=== PATIENT | male | born 1970 | race Hispanic/Latino ===

== ENCOUNTER 2017-04-22 02:56 | Inpatient (IN) | payer BC, OTHER ==
[2017-04-22 03:38] LABS: Hematocrit 48.8 % (35.5-45.6); Hemoglobin 16.9 gm/dl (11.8-15.2); Mean Corpuscular HGB Conc 35 % (32-34); Mean Corpuscular Hemoglobin 31 pg (28-32); Mean Corpuscular Volume 89 fl (84-94); Platelet Count 322 K/mm3 (140-440); Red Blood Count 5.51 M/mm3 (3.65-5.03); Red Cell Distribution Width 12.7 % (13.2-15.2)
[2017-04-22 03:51] LABS: Alanine Aminotransferase 89 units/L (7-56); BUN/Creatinine Ratio 31; Blood Urea Nitrogen 22 mg/dL (9-20); Calcium 8.6 mg/dL (8.4-10.2); Hemolysis Index 9
[2017-04-22 04:41] LABS: Anisocytosis 1+; Band Neutrophils # (Manual) 1.3 K/mm3; Basophils % (Manual) 0 % (0.0-1.8); Eosinophils % (Manual) 0 % (0.0-4.3); Total Cells Counted 100
[2017-04-22 06:56] LABS: Bilirubin,Urine NEG (Negative); Blood,Urine NEG (Negative); Color,Urine Yellow (Yellow); Hyaline Casts,Urine 4 /LPF; Mucus,Urine 3+ /HPF; Protein,Urine <15 mg/dL mg/dL (Negative); Urobilinogen,Urine < 2.0 mg/dL (<2.0)
[2017-04-22] MEDS ORDERED: NACL 0.9% 1000 ML 1,000 ML IV ONE ×2 (07:33→09:52)
--- NOTE | 2017-04-22 07:33 | Emergency Department Report ---
ED General Adult HPI - General Chief complaint: Weakness Stated complaint: WEAKNESS Time Seen by Provider: 04/22/17 07:31 Source: patient Mode of arrival: Ambulatory Limitations: No Limitations - History of Present Illness Initial comments: The patient arrives in the emergency department quite lethargic and unable to give much information. He has answers appropriately in single sentences but is really quite lethargic. He does not complain of pain anywhere. 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 He arrives with coworkers. They state that he is normally fully alert, functional and able to speak in full sentences. They found him to be very weak and lethargic this morning. He has apparently been having cold symptoms for a week. Last night had some nausea and vomiting. He denied diarrhea to me or abdominal pain. He said no recent travel. He wasn't aware of any fever or chills. However, he is a very poor historian at the time of my encounter. The patient was able to deny a previous hospitalizations or chronic medical problems. He doesn't take any medications. -: days(s) - Related Data Home Medications Medication Instructions Recorded Confirmed Last Taken No Known Home Medications [No 04/22/17 04/22/17 Unknown Reported Home Medications] Allergies Allergy/AdvReac Type Severity Reaction Status Date / Time No Known Allergies Allergy Verified 04/22/17 08:53 ED Review of Systems ROS: Stated complaint: WEAKNESS Other details as noted in HPI Comment: Unobtainable due to pts medical conditions ED Past Medical Hx - Past Medical History Previous Medical History?: No - Surgical History Past Surgical History?: No - Social History Smoking Status: Current Every Day Smoker Substance Use Type: None - Medications Home Medications: Home Medications Medication Instructions Recorded Confirmed Last Taken Type No Known Home Medications [No 04/22/17 04/22/17 Unknown History Reported Home Medications] ED Physical Exam - General Limitations: Altered Mental Status General appearance: in no apparent distress, lethargic - Head Head exam: Present: atraumatic, normocephalic - Eye Eye exam: Present: normal appearance, PERRL, EOMI. Absent: scleral icterus - ENT ENT exam: Present: normal exam, mucous membranes dry - Neck Neck exam: Present: normal inspection, full ROM. Absent: tenderness, meningismus, lymphadenopathy, thyromegaly - Respiratory Respiratory exam: Present: normal lung sounds bilaterally. Absent: respiratory distress - Cardiovascular Cardiovascular Exam: Present: regular rate, normal rhythm. Absent: systolic murmur, diastolic murmur, rubs, gallop - GI/Abdominal GI/Abdominal exam: Present: soft, normal bowel sounds. Absent: distended, tenderness, guarding, rebound, rigid - Rectal Rectal exam: Present: deferred - Extremities Exam Extremities exam: Present: normal inspection - Back Exam Back exam: Present: normal inspection. Absent: CVA tenderness (R), CVA tenderness (L) - Neurological Exam Neurological exam: Present: alert, oriented X3, CN II-XII intact. Absent: motor sensory deficit - Psychiatric Psychiatric exam: Present: normal mood, flat affect - Skin Skin exam: Present: warm, dry, intact, normal color. Absent: rash ED Course Vital Signs 04/22/17 04/22/17 04/22/17 03:18 07:24 07:31 Temperature 99.4 F Pulse Rate 52 L 55 L Respiratory 20 18 20 Rate Blood Pressure 116/74 O2 Sat by Pulse 95 96 96 Oximetry 04/22/17 04/22/17 04/22/17 07:45 08:00 08:16 Temperature Pulse Rate 61 59 L Respiratory 17 29 H Rate Blood Pressure 141/84 142/92 90/70 O2 Sat by Pulse 96 96 Oximetry 04/22/17 04/22/17 04/22/17 08:30 09:11 09:15 Temperature Pulse Rate 74 Respiratory 17 14 20 Rate Blood Pressure 182/115 182/115 134/86 O2 Sat by Pulse 96 95 93 Oximetry 04/22/17 04/22/17 04/22/17 09:31 09:45 10:00 Temperature Pulse Rate 80 72 77 Respiratory 19 18 25 H Rate Blood Pressure 182/115 128/79 131/86 O2 Sat by Pulse 93 91 93 Oximetry 04/22/17 04/22/17 04/22/17 10:10 10:15 10:31 Temperature Pulse Rate 63 67 Respiratory 12 25 H Rate Blood Pressure 131/86 131/86 O2 Sat by Pulse 94 94 95 Oximetry 04/22/17 04/22/17 04/22/17 10:45 10:51 11:01 Temperature Pulse Rate 80 78 61 Respiratory 20 18 12 Rate Blood Pressure 131/86 131/86 131/86 O2 Sat by Pulse 97 97 96 Oximetry 04/22/17 11:10 Temperature Pulse Rate 77 Respiratory 19 Rate Blood Pressure 131/86 O2 Sat by Pulse 95 Oximetry - Reevaluation(s) Reevaluation #1: Patient was given IV fluids. He was given empiric antibiotics. A CT of his head was negative. An arterial blood gas did show hypoxia with a PaO2 of less than 60. A lumbar puncture was performed without difficulty. Fluid was sent to the lab for various studies. The patient was admitted to the hospitalist service hemodynamically stable for further care and evaluation. His lactic acid level was elevated so he is presumed to have sepsis. Hospitalist was aware of the preliminary findings. The patient was admitted by Dr. Ashraf to [facility]/remote telemetry. I placed the patient 2 L of oxygen and ordered continuous pulse oximetry as well. 04/22/17 15:47 04/22/17 15:52 Lumbar puncture: spinal fluid is essentially normal. - Lumbar Puncture Consent Obtained: verbal consent, emergent situation Time Out Performed: No Indication for Procedure: change in mental status Patient Position: Sitting Upright/Leaning F Skin Prep: Povidone-Iodine 1% Spinal Needle Gauge: 20G Spinal Needle Length: 2in Interspace Used: L4-L5 Opening Pressure (cmH20): 0 (apparently normal) Fluid Initially Obtained: clear Complications: none Patient Tolerated Procedure: well ED Medical Decision Making - Lab Data Result diagrams: 04/22/17 03:25 04/22/17 03:25 Laboratory Results - last 24 hr 04/22/17 04/22/17 04/22/17 03:25 03:25 06:16 WBC 14.7 H RBC 5.51 H Hgb 16.9 H Hct 48.8 H MCV 89 MCH 31 MCHC 35 H RDW 12.7 L Plt Count 322 Add Manual Diff Complete Total Counted 100 Seg Neuts % (Manual) 71.0 H Band Neutrophils % 9.0 Lymphocytes % (Manual) 14.0 Reactive Lymphs % (Man) 0 Monocytes % (Manual) 6.0 Eosinophils % (Manual) 0 Basophils % (Manual) 0 Metamyelocytes % 0 Myelocytes % 0 Promyelocytes % 0 Blast Cells % 0 Nucleated RBC % Not Reportable Seg Neutrophils # Man 10.4 H Band Neutrophils # 1.3 Lymphocytes # (Manual) 2.1 Abs React Lymphs (Man) 0.0 Monocytes # (Manual) 0.9 H Eosinophils # (Manual) 0.0 Basophils # (Manual) 0.0 Metamyelocytes # 0.0 Myelocytes # 0.0 Promyelocytes # 0.0 Blast Cells # 0.0 WBC Morphology Not Reportable Hypersegmented Neuts Not Reportable Hyposegmented Neuts Not Reportable Hypogranular Neuts Not Reportable Smudge Cells Not Reportable Toxic Granulation Not Reportable Toxic Vacuolation Not Reportable Dohle Bodies Not Reportable Pelger-Huet Anomaly Not Reportable Tan Rods Not Reportable Platelet Estimate Appears normal Clumped Platelets Not Reportable Plt Clumps, EDTA Not Reportable Large Platelets Not Reportable Giant Platelets Not Reportable Platelet Satelliting Not Reportable Plt Morphology Comment Not Reportable RBC Morphology Not Reportable Dimorphic RBCs Not Reportable Polychromasia Not Reportable Hypochromasia Not Reportable Poikilocytosis Not Reportable Anisocytosis 1+ Microcytosis Not Reportable Macrocytosis Not Reportable Spherocytes Not Reportable Pappenheimer Bodies Not Reportable Sickle Cells Not Reportable Target Cells Not Reportable Tear Drop Cells Not Reportable Ovalocytes Not Reportable Helmet Cells Not Reportable [place] Bodies Not Reportable [place] Rings Not Reportable [place] Cells Not Reportable Bite Cells Not Reportable Crenated Cell Not Reportable Elliptocytes Not Reportable Acanthocytes (Spur) Not Reportable Rouleaux Not Reportable Hemoglobin C Crystals Not Reportable Schistocytes Not Reportable Malaria parasites Not Reportable Oswaldo Bodies Not Reportable Hem Pathologist Commnt No Sodium 136 L Potassium 4.2 Chloride 95.3 L Carbon Dioxide 25 Anion Gap 20 BUN 22 H Creatinine 0.7 L Estimated GFR > 60 BUN/Creatinine Ratio 31 Glucose 171 H Calcium 8.6 Total Bilirubin 0.90 AST 44 H ALT 89 H Alkaline Phosphatase 75 Total Protein 6.9 Albumin 4.0 Albumin/Globulin Ratio 1.4 Urine Color Yellow Urine Turbidity Clear Urine pH 5.0 Ur Specific [place] 1.024 Urine Protein <15 mg/dl Urine Glucose (UA) Neg Urine Ketones Neg Urine Blood Neg Urine Nitrite Neg Urine Bilirubin Neg Urine Urobilinogen < 2.0 Ur Leukocyte Esterase Neg Urine WBC (Auto) 5.0 Urine RBC (Auto) 1.0 Hyaline Casts 4 Urine Mucus 3+ Laboratory Results - last 24 hr 04/22/17 04/22/17 04/22/17 03:25 03:25 06:16 WBC 14.7 H RBC 5.51 H Hgb 16.9 H Hct 48.8 H MCV 89 MCH 31 MCHC 35 H RDW 12.7 L Plt Count 322 Add Manual Diff Complete Total Counted 100 Seg Neuts % (Manual) 71.0 H Band Neutrophils % 9.0 Lymphocytes % (Manual) 14.0 Reactive Lymphs % (Man) 0 Monocytes % (Manual) 6.0 Eosinophils % (Manual) 0 Basophils % (Manual) 0 Metamyelocytes % 0 Myelocytes % 0 Promyelocytes % 0 Blast Cells % 0 Nucleated RBC % Not Reportable Seg Neutrophils # Man 10.4 H Band Neutrophils # 1.3 Lymphocytes # (Manual) 2.1 Abs React Lymphs (Man) 0.0 Monocytes # (Manual) 0.9 H Eosinophils # (Manual) 0.0 Basophils # (Manual) 0.0 Metamyelocytes # 0.0 Myelocytes # 0.0 Promyelocytes # 0.0 Blast Cells # 0.0 WBC Morphology Not Reportable Hypersegmented Neuts Not Reportable Hyposegmented Neuts Not Reportable Hypogranular Neuts Not Reportable Smudge Cells Not Reportable Toxic Granulation Not Reportable Toxic Vacuolation Not Reportable Dohle Bodies Not Reportable Pelger-Huet Anomaly Not Reportable Tan Rods Not Reportable Platelet Estimate Appears normal Clumped Platelets Not Reportable Plt Clumps, EDTA Not Reportable Large Platelets Not Reportable Giant Platelets Not Reportable Platelet Satelliting Not Reportable Plt Morphology Comment Not Reportable RBC Morphology Not Reportable Dimorphic RBCs Not Reportable Polychromasia Not Reportable Hypochromasia Not Reportable Poikilocytosis Not Reportable Anisocytosis 1+ Microcytosis Not Reportable Macrocytosis Not Reportable Spherocytes Not Reportable Pappenheimer Bodies Not Reportable Sickle Cells Not Reportable Target Cells Not Reportable Tear Drop Cells Not Reportable Ovalocytes Not Reportable Helmet Cells Not Reportable [place] Bodies Not Reportable [place] Rings Not Reportable [place] Cells Not Reportable Bite Cells Not Reportable Crenated Cell Not Reportable Elliptocytes Not Reportable Acanthocytes (Spur) Not Reportable Rouleaux Not Reportable Hemoglobin C Crystals Not Reportable Schistocytes Not Reportable Malaria parasites Not Reportable Oswaldo Bodies Not Reportable Hem Pathologist Commnt No PT INR APTT Sodium 136 L Potassium 4.2 Chloride 95.3 L Carbon Dioxide 25 Anion Gap 20 BUN 22 H Creatinine 0.7 L Estimated GFR > 60 BUN/Creatinine Ratio 31 Glucose 171 H Lactic Acid Calcium 8.6 Magnesium Total Bilirubin 0.90 Direct Bilirubin Indirect Bilirubin AST 44 H ALT 89 H Alkaline Phosphatase 75 Ammonia Total Creatine Kinase CK-MB (CK-2) CK-MB (CK-2) Rel Index Troponin T NT-Pro-B Natriuret Pep Total Protein 6.9 Albumin 4.0 Albumin/Globulin Ratio 1.4 Lipase Urine Color Yellow Urine Turbidity Clear Urine pH 5.0 Ur Specific [place] 1.024 Urine Protein <15 mg/dl Urine Glucose (UA) Neg Urine Ketones Neg Urine Blood Neg Urine Nitrite Neg Urine Bilirubin Neg Urine Urobilinogen < 2.0 Ur Leukocyte Esterase Neg Urine WBC (Auto) 5.0 Urine RBC (Auto) 1.0 Hyaline Casts 4 Urine Mucus 3+ Acetaminophen 04/22/17 04/22/17 04/22/17 07:41 07:41 07:41 WBC RBC Hgb Hct MCV MCH MCHC RDW Plt Count Add Manual Diff Total Counted Seg Neuts % (Manual) Band Neutrophils % Lymphocytes % (Manual) Reactive Lymphs % (Man) Monocytes % (Manual) Eosinophils % (Manual) Basophils % (Manual) Metamyelocytes % Myelocytes % Promyelocytes % Blast Cells % Nucleated RBC % Seg Neutrophils # Man Band Neutrophils # Lymphocytes # (Manual) Abs React Lymphs (Man) Monocytes # (Manual) Eosinophils # (Manual) Basophils # (Manual) Metamyelocytes # Myelocytes # Promyelocytes # Blast Cells # WBC Morphology Hypersegmented Neuts Hyposegmented Neuts Hypogranular Neuts Smudge Cells Toxic Granulation Toxic Vacuolation Dohle Bodies Pelger-Huet Anomaly Tan Rods Platelet Estimate Clumped Platelets Plt Clumps, EDTA Large Platelets Giant Platelets Platelet Satelliting Plt Morphology Comment RBC Morphology Dimorphic RBCs Polychromasia Hypochromasia Poikilocytosis Anisocytosis Microcytosis Macrocytosis Spherocytes Pappenheimer Bodies Sickle Cells Target Cells Tear Drop Cells Ovalocytes Helmet Cells [place] Bodies [place] Rings [place] Cells Bite Cells Crenated Cell Elliptocytes Acanthocytes (Spur) Rouleaux Hemoglobin C Crystals Schistocytes Malaria parasites Oswaldo Bodies Hem Pathologist Commnt PT 12.9 INR 0.93 APTT 20.0 L Sodium Potassium Chloride Carbon Dioxide Anion Gap BUN Creatinine Estimated GFR BUN/Creatinine Ratio Glucose Lactic Acid 3.10 H* Calcium Magnesium Total Bilirubin 0.90 Direct Bilirubin 0.3 H Indirect Bilirubin 0.6 AST 41 H ALT 84 H Alkaline Phosphatase 72 Ammonia Total Creatine Kinase CK-MB (CK-2) CK-MB (CK-2) Rel Index Troponin T NT-Pro-B Natriuret Pep Total Protein 6.9 Albumin 4.1 Albumin/Globulin Ratio 1.5 Lipase Urine Color Urine Turbidity Urine pH Ur Specific [place] Urine Protein Urine Glucose (UA) Urine Ketones Urine Blood Urine Nitrite Urine Bilirubin Urine Urobilinogen Ur Leukocyte Esterase Urine WBC (Auto) Urine RBC (Auto) Hyaline Casts Urine Mucus Acetaminophen 04/22/17 04/22/17 04/22/17 07:41 07:41 10:07 WBC RBC Hgb Hct MCV MCH MCHC RDW Plt Count Add Manual Diff Total Counted Seg Neuts % (Manual) Band Neutrophils % Lymphocytes % (Manual) Reactive Lymphs % (Man) Monocytes % (Manual) Eosinophils % (Manual) Basophils % (Manual) Metamyelocytes % Myelocytes % Promyelocytes % Blast Cells % Nucleated RBC % Seg Neutrophils # Man Band Neutrophils # Lymphocytes # (Manual) Abs React Lymphs (Man) Monocytes # (Manual) Eosinophils # (Manual) Basophils # (Manual) Metamyelocytes # Myelocytes # Promyelocytes # Blast Cells # WBC Morphology Hypersegmented Neuts Hyposegmented Neuts Hypogranular Neuts Smudge Cells Toxic Granulation Toxic Vacuolation Dohle Bodies Pelger-Huet Anomaly [place]s Platelet Estimate Clumped Platelets Plt Clumps, EDTA Large Platelets Giant Platelets Platelet Satelliting Plt Morphology Comment RBC Morphology Dimorphic RBCs Polychromasia Hypochromasia Poikilocytosis Anisocytosis Microcytosis Macrocytosis Spherocytes Pappenheimer Bodies Sickle Cells Target Cells Tear Drop Cells Ovalocytes Helmet Cells [place] Bodies [place] Rings [place] Cells Bite Cells Crenated Cell Elliptocytes Acanthocytes (Spur) Rouleaux Hemoglobin C Crystals Schistocytes Malaria parasites Oswaldo Bodies Hem Pathologist Commnt PT INR APTT Sodium Potassium Chloride Carbon Dioxide Anion Gap BUN Creatinine Estimated GFR BUN/Creatinine Ratio Glucose Lactic Acid 2.70 H* Calcium Magnesium Total Bilirubin Direct Bilirubin Indirect Bilirubin AST ALT Alkaline Phosphatase Ammonia Total Creatine Kinase CK-MB (CK-2) CK-MB (CK-2) Rel Index Troponin T < 0.010 NT-Pro-B Natriuret Pep Total Protein Albumin Albumin/Globulin Ratio Lipase 3 L Urine Color Urine Turbidity Urine pH Ur Specific [place] Urine Protein Urine Glucose (UA) Urine Ketones Urine Blood Urine Nitrite Urine Bilirubin Urine Urobilinogen Ur Leukocyte Esterase Urine WBC (Auto) Urine RBC (Auto) Hyaline Casts Urine Mucus Acetaminophen 04/22/17 04/22/17 04/22/17 10:07 10:07 10:07 WBC RBC Hgb Hct MCV MCH MCHC RDW Plt Count Add Manual Diff Total Counted Seg Neuts % (Manual) Band Neutrophils % Lymphocytes % (Manual) Reactive Lymphs % (Man) Monocytes % (Manual) Eosinophils % (Manual) Basophils % (Manual) Metamyelocytes % Myelocytes % Promyelocytes % Blast Cells % Nucleated RBC % Seg Neutrophils # Man Band Neutrophils # Lymphocytes # (Manual) Abs React Lymphs (Man) Monocytes # (Manual) Eosinophils # (Manual) Basophils # (Manual) Metamyelocytes # Myelocytes # Promyelocytes # Blast Cells # WBC Morphology Hypersegmented Neuts Hyposegmented Neuts Hypogranular Neuts Smudge Cells Toxic Granulation Toxic Vacuolation Dohle Bodies Pelger-Huet Anomaly [place]s Platelet Estimate Clumped Platelets Plt Clumps, EDTA Large Platelets Giant Platelets Platelet Satelliting Plt Morphology Comment RBC Morphology Dimorphic RBCs Polychromasia Hypochromasia Poikilocytosis Anisocytosis Microcytosis Macrocytosis Spherocytes Pappenheimer Bodies Sickle Cells Target Cells Tear Drop Cells Ovalocytes Helmet Cells [place] Bodies [place] Rings [place] Cells Bite Cells Crenated Cell Elliptocytes Acanthocytes (Spur) Rouleaux Hemoglobin C Crystals Schistocytes Malaria parasites Oswaldo Bodies Hem Pathologist Commnt PT INR APTT Sodium Potassium Chloride Carbon Dioxide Anion Gap BUN Creatinine Estimated GFR BUN/Creatinine Ratio Glucose Lactic Acid Calcium Magnesium 2.40 H Total Bilirubin Direct Bilirubin Indirect Bilirubin AST ALT Alkaline Phosphatase Ammonia Total Creatine Kinase 57 CK-MB (CK-2) 1.3 CK-MB (CK-2) Rel Index 2.2 Troponin T < 0.010 NT-Pro-B Natriuret Pep 40.33 Total Protein Albumin Albumin/Globulin Ratio Lipase Urine Color Urine Turbidity Urine pH Ur Specific [place] Urine Protein Urine Glucose (UA) Urine Ketones Urine Blood Urine Nitrite Urine Bilirubin Urine Urobilinogen Ur Leukocyte Esterase Urine WBC (Auto) Urine RBC (Auto) Hyaline Casts Urine Mucus Acetaminophen < 15.0 04/22/17 10:07 WBC RBC Hgb Hct MCV MCH MCHC RDW Plt Count Add Manual Diff Total Counted Seg Neuts % (Manual) Band Neutrophils % Lymphocytes % (Manual) Reactive Lymphs % (Man) Monocytes % (Manual) Eosinophils % (Manual) Basophils % (Manual) Metamyelocytes % Myelocytes % Promyelocytes % Blast Cells % Nucleated RBC % Seg Neutrophils # Man Band Neutrophils # Lymphocytes # (Manual) Abs React Lymphs (Man) Monocytes # (Manual) Eosinophils # (Manual) Basophils # (Manual) Metamyelocytes # Myelocytes # Promyelocytes # Blast Cells # WBC Morphology Hypersegmented Neuts Hyposegmented Neuts Hypogranular Neuts Smudge Cells Toxic Granulation Toxic Vacuolation Dohle Bodies Pelger-Huet Anomaly [place]s Platelet Estimate Clumped Platelets Plt Clumps, EDTA Large Platelets Giant Platelets Platelet Satelliting Plt Morphology Comment RBC Morphology Dimorphic RBCs Polychromasia Hypochromasia Poikilocytosis Anisocytosis Microcytosis Macrocytosis Spherocytes Pappenheimer Bodies Sickle Cells Target Cells Tear Drop Cells Ovalocytes Helmet Cells [place] Bodies [place] Rings [place] Cells Bite Cells Crenated Cell Elliptocytes Acanthocytes (Spur) Rouleaux Hemoglobin C Crystals Schistocytes Malaria parasites Oswaldo Bodies Hem Pathologist Commnt PT INR APTT Sodium Potassium Chloride Carbon Dioxide Anion Gap BUN Creatinine Estimated GFR BUN/Creatinine Ratio Glucose Lactic Acid Calcium Magnesium Total Bilirubin Direct Bilirubin Indirect Bilirubin AST ALT Alkaline Phosphatase Ammonia 22.0 L Total Creatine Kinase CK-MB (CK-2) CK-MB (CK-2) Rel Index Troponin T NT-Pro-B Natriuret Pep Total Protein Albumin Albumin/Globulin Ratio Lipase Urine Color Urine Turbidity Urine pH Ur Specific [place] Urine Protein Urine Glucose (UA) Urine Ketones Urine Blood Urine Nitrite Urine Bilirubin Urine Urobilinogen Ur Leukocyte Esterase Urine WBC (Auto) Urine RBC (Auto) Hyaline Casts Urine Mucus Acetaminophen Laboratory Results - last 24 hr 04/22/17 04/22/17 04/22/17 03:25 03:25 06:16 WBC 14.7 H RBC 5.51 H Hgb 16.9 H Hct 48.8 H MCV 89 MCH 31 MCHC 35 H RDW 12.7 L Plt Count 322 Add Manual Diff Complete Total Counted 100 Seg Neuts % (Manual) 71.0 H Band Neutrophils % 9.0 Lymphocytes % (Manual) 14.0 Reactive Lymphs % (Man) 0 Monocytes % (Manual) 6.0 Eosinophils % (Manual) 0 Basophils % (Manual) 0 Metamyelocytes % 0 Myelocytes % 0 Promyelocytes % 0 Blast Cells % 0 Nucleated RBC % Not Reportable Seg Neutrophils # Man 10.4 H Band Neutrophils # 1.3 Lymphocytes # (Manual) 2.1 Abs React Lymphs (Man) 0.0 Monocytes # (Manual) 0.9 H Eosinophils # (Manual) 0.0 Basophils # (Manual) 0.0 Metamyelocytes # 0.0 Myelocytes # 0.0 Promyelocytes # 0.0 Blast Cells # 0.0 WBC Morphology Not Reportable Hypersegmented Neuts Not Reportable Hyposegmented Neuts Not Reportable Hypogranular Neuts Not Reportable Smudge Cells Not Reportable Toxic Granulation Not Reportable Toxic Vacuolation Not Reportable Dohle Bodies Not Reportable Pelger-Huet Anomaly Not Reportable [place] Rods Not Reportable Platelet Estimate Appears normal Clumped Platelets Not Reportable Plt Clumps, EDTA Not Reportable Large Platelets Not Reportable Giant Platelets Not Reportable Platelet Satelliting Not Reportable Plt Morphology Comment Not Reportable RBC Morphology Not Reportable Dimorphic RBCs Not Reportable Polychromasia Not Reportable Hypochromasia Not Reportable Poikilocytosis Not Reportable Anisocytosis 1+ Microcytosis Not Reportable Macrocytosis Not Reportable Spherocytes Not Reportable Pappenheimer Bodies Not Reportable Sickle Cells Not Reportable Target Cells Not Reportable Tear Drop Cells Not Reportable Ovalocytes Not Reportable Helmet Cells Not Reportable [place] Bodies Not Reportable [place] Rings Not Reportable [place] Cells Not Reportable Bite Cells Not Reportable Crenated Cell Not Reportable Elliptocytes Not Reportable Acanthocytes (Spur) Not Reportable Rouleaux Not Reportable Hemoglobin C Crystals Not Reportable Schistocytes Not Reportable Malaria parasites Not Reportable [place]al[place] Bodies Not Reportable Hem Pathologist Commnt No PT INR APTT Sodium 136 L Potassium 4.2 Chloride 95.3 L Carbon Dioxide 25 Anion Gap 20 BUN 22 H Creatinine 0.7 L Estimated GFR > 60 BUN/Creatinine Ratio 31 Glucose 171 H Lactic Acid Calcium 8.6 Magnesium Total Bilirubin 0.90 Direct Bilirubin Indirect Bilirubin AST 44 H ALT 89 H Alkaline Phosphatase 75 Ammonia Total Creatine Kinase CK-MB (CK-2) CK-MB (CK-2) Rel Index Troponin T NT-Pro-B Natriuret Pep Total Protein 6.9 Albumin 4.0 Albumin/Globulin Ratio 1.4 Lipase Urine Color Yellow Urine Turbidity Clear Urine pH 5.0 Ur Specific [place] 1.024 Urine Protein <15 mg/dl Urine Glucose (UA) Neg Urine Ketones Neg Urine Blood Neg Urine Nitrite Neg Urine Bilirubin Neg Urine Urobilinogen < 2.0 Ur Leukocyte Esterase Neg Urine WBC (Auto) 5.0 Urine RBC (Auto) 1.0 Hyaline Casts 4 Urine Mucus 3+ Acetaminophen 04/22/17 04/22/17 04/22/17 07:41 07:41 07:41 WBC RBC Hgb Hct MCV MCH MCHC RDW Plt Count Add Manual Diff Total Counted Seg Neuts % (Manual) Band Neutrophils % Lymphocytes % (Manual) Reactive Lymphs % (Man) Monocytes % (Manual) Eosinophils % (Manual) Basophils % (Manual) Metamyelocytes % Myelocytes % Promyelocytes % Blast Cells % Nucleated RBC % Seg Neutrophils # Man Band Neutrophils # Lymphocytes # (Manual) Abs React Lymphs (Man) Monocytes # (Manual) Eosinophils # (Manual) Basophils # (Manual) Metamyelocytes # Myelocytes # Promyelocytes # Blast Cells # WBC Morphology Hypersegmented Neuts Hyposegmented Neuts Hypogranular Neuts Smudge Cells Toxic Granulation Toxic Vacuolation Dohle Bodies Pelger-Huet Anomaly [place] Platelet Estimate Clumped Platelets Plt Clumps, EDTA Large Platelets Giant Platelets Platelet Satelliting Plt Morphology Comment RBC Morphology Dimorphic RBCs Polychromasia Hypochromasia Poikilocytosis Anisocytosis Microcytosis Macrocytosis Spherocytes Pappenheimer Bodies Sickle Cells Target Cells Tear Drop Cells Ovalocytes Helmet Cells [place] Bodies [place] Rings [place] Cells Bite Cells Crenated Cell Elliptocytes Acanthocytes (Sp[place]) Rouleaux Hemoglobin C Crystals Schistocytes Malaria parasites Oswaldo Bodies Hem Pathologist Commnt PT 12.9 INR 0.93 APTT 20.0 L Sodium Potassium Chloride Carbon Dioxide Anion Gap BUN Creatinine Estimated GFR BUN/Creatinine Ratio Glucose Lactic Acid 3.10 H* Calcium Magnesium Total Bilirubin 0.90 Direct Bilirubin 0.3 H Indirect Bilirubin 0.6 AST 41 H ALT 84 H Alkaline Phosphatase 72 Ammonia Total Creatine Kinase CK-MB (CK-2) CK-MB (CK-2) Rel Index Troponin T NT-Pro-B Natriuret Pep Total Protein 6.9 Albumin 4.1 Albumin/Globulin Ratio 1.5 Lipase Urine Color Urine Turbidity Urine pH Ur Specific [place] Urine Protein Urine Glucose (UA) Urine Ketones Urine Blood Urine Nitrite Urine Bilirubin Urine Urobilinogen Ur Leukocyte Esterase Urine WBC (Auto) Urine RBC (Auto) Hyaline Casts Urine Mucus Acetaminophen 04/22/17 04/22/17 04/22/17 07:41 07:41 10:07 WBC RBC Hgb Hct MCV MCH MCHC RDW Plt Count Add Manual Diff Total Counted Seg Neuts % (Manual) Band Neutrophils % Lymphocytes % (Manual) Reactive Lymphs % (Man) Monocytes % (Manual) Eosinophils % (Manual) Basophils % (Manual) Metamyelocytes % Myelocytes % Promyelocytes % Blast Cells % Nucleated RBC % Seg Neutrophils # Man Band Neutrophils # Lymphocytes # (Manual) Abs React Lymphs (Man) Monocytes # (Manual) Eosinophils # (Manual) Basophils # (Manual) Metamyelocytes # Myelocytes # Promyelocytes # Blast Cells # WBC Morphology Hypersegmented Neuts Hyposegmented Neuts Hypogranular Neuts Smudge Cells Toxic Granulation Toxic Vacuolation Dohle Bodies Pelger-Huet Anomaly Tan Rods Platelet Estimate Clumped Platelets Plt Clumps, EDTA Large Platelets Giant Platelets Platelet Satelliting Plt Morphology Comment RBC Morphology Dimorphic RBCs Polychromasia Hypochromasia Poikilocytosis Anisocytosis Microcytosis Macrocytosis Spherocytes Pappenheimer Bodies Sickle Cells Target Cells Tear Drop Cells Ovalocytes Helmet Cells [place] Bodies [place] Rings Paresh Cells Bite Cells Crenated Cell Elliptocytes Acanthocytes (Spur) Rouleaux Hemoglobin C Crystals Schistocytes Malaria parasites Oswaldo Bodies Hem Pathologist Commnt PT INR APTT Sodium Potassium Chloride Carbon Dioxide Anion Gap BUN Creatinine Estimated GFR BUN/Creatinine Ratio Glucose Lactic Acid 2.70 H* Calcium Magnesium Total Bilirubin Direct Bilirubin Indirect Bilirubin AST ALT Alkaline Phosphatase Ammonia Total Creatine Kinase CK-MB (CK-2) CK-MB (CK-2) Rel Index Troponin T < 0.010 NT-Pro-B Natriuret Pep Total Protein Albumin Albumin/Globulin Ratio Lipase 3 L Urine Color Urine Turbidity Urine pH Ur Specific [place] Urine Protein Urine Glucose (UA) Urine Ketones Urine Blood Urine Nitrite Urine Bilirubin Urine Urobilinogen Ur Leukocyte Esterase Urine WBC (Auto) Urine RBC (Auto) Hyaline Casts Urine Mucus Acetaminophen 04/22/17 04/22/17 04/22/17 10:07 10:07 10:07 WBC RBC Hgb Hct MCV MCH MCHC RDW Plt Count Add Manual Diff Total Counted Seg Neuts % (Manual) Band Neutrophils % Lymphocytes % (Manual) Reactive Lymphs % (Man) Monocytes % (Manual) Eosinophils % (Manual) Basophils % (Manual) Metamyelocytes % Myelocytes % Promyelocytes % Blast Cells % Nucleated RBC % Seg Neutrophils # Man Band Neutrophils # Lymphocytes # (Manual) Abs React Lymphs (Man) Monocytes # (Manual) Eosinophils # (Manual) Basophils # (Manual) Metamyelocytes # Myelocytes # Promyelocytes # Blast Cells # WBC Morphology Hypersegmented Neuts Hyposegmented Neuts Hypogranular Neuts Smudge Cells Toxic Granulation Toxic Vacuolation Dohle Bodies Pelger-Huet Anomaly [place] Rods Platelet Estimate Clumped Platelets Plt Clumps, EDTA Large Platelets Giant Platelets Platelet Satelliting Plt Morphology Comment RBC Morphology Dimorphic RBCs Polychromasia Hypochromasia Poikilocytosis Anisocytosis Microcytosis Macrocytosis Spherocytes Pappenheimer Bodies Sickle Cells Target Cells Tear Drop Cells Ovalocytes Helmet Cells [place] Bodies [place] Rings [place] Cells Bite Cells Crenated Cell Elliptocytes Acanthocytes (Spur) Rouleaux Hemoglobin C Crystals Schistocytes Malaria parasites Oswaldo Bodies Hem Pathologist Commnt PT INR APTT Sodium Potassium Chloride Carbon Dioxide Anion Gap BUN Creatinine Estimated GFR BUN/Creatinine Ratio Glucose Lactic Acid Calcium Magnesium 2.40 H Total Bilirubin Direct Bilirubin Indirect Bilirubin AST ALT Alkaline Phosphatase Ammonia Total Creatine Kinase 57 CK-MB (CK-2) 1.3 CK-MB (CK-2) Rel Index 2.2 Troponin T < 0.010 NT-Pro-B Natriuret Pep 40.33 Total Protein Albumin Albumin/Globulin Ratio Lipase Urine Color Urine Turbidity Urine pH Ur Specific [place] Urine Protein Urine Glucose (UA) Urine Ketones Urine Blood Urine Nitrite Urine Bilirubin Urine Urobilinogen Ur Leukocyte Esterase Urine WBC (Auto) Urine RBC (Auto) Hyaline Casts Urine Mucus Acetaminophen < 15.0 04/22/17 10:07 WBC RBC Hgb Hct MCV MCH MCHC RDW Plt Count Add Manual Diff Total Counted Seg Neuts % (Manual) Band Neutrophils % Lymphocytes % (Manual) Reactive Lymphs % (Man) Monocytes % (Manual) Eosinophils % (Manual) Basophils % (Manual) Metamyelocytes % Myelocytes % Promyelocytes % Blast Cells % Nucleated RBC % Seg Neutrophils # Man Band Neutrophils # Lymphocytes # (Manual) Abs React Lymphs (Man) Monocytes # (Manual) Eosinophils # (Manual) Basophils # (Manual) Metamyelocytes # Myelocytes # Promyelocytes # Blast Cells # WBC Morphology Hypersegmented Neuts Hyposegmented Neuts Hypogranular Neuts Smudge Cells Toxic Granulation Toxic Vacuolation Dohle Bodies Pelger-Huet Anomaly [place] Rods Platelet Estimate Clumped Platelets Plt Clumps, EDTA Large Platelets Giant Platelets Platelet Satelliting Plt Morphology Comment RBC Morphology Dimorphic RBCs Polychromasia Hypochromasia Poikilocytosis Anisocytosis Microcytosis Macrocytosis Spherocytes Pappenheimer Bodies Sickle Cells Target Cells Tear Drop Cells Ovalocytes Helmet Cells [place] Bodies [place] Rings [place] Cells Bite Cells Crenated Cell Elliptocytes Acanthocytes (Spur) Rouleaux Hemoglobin C Crystals Schistocytes Malaria parasites Oswaldo Bodies Hem Pathologist Commnt PT INR APTT Sodium Potassium Chloride Carbon Dioxide Anion Gap BUN Creatinine Estimated GFR BUN/Creatinine Ratio Glucose Lactic Acid Calcium Magnesium Total Bilirubin Direct Bilirubin Indirect Bilirubin AST ALT Alkaline Phosphatase Ammonia 22.0 L Total Creatine Kinase CK-MB (CK-2) CK-MB (CK-2) Rel Index Troponin T NT-Pro-B Natriuret Pep Total Protein Albumin Albumin/Globulin Ratio Lipase Urine Color Urine Turbidity Urine pH Ur Specific [place] Urine Protein Urine Glucose (UA) Urine Ketones Urine Blood Urine Nitrite Urine Bilirubin Urine Urobilinogen Ur Leukocyte Esterase Urine WBC (Auto) Urine RBC (Auto) Hyaline Casts Urine Mucus Acetaminophen - EKG Data -: EKG Interpreted by Me EKG shows normal: sinus rhythm, axis, intervals, QRS complexes, ST-T waves Rate: normal - EKG Data Interpretation: nonspecific ST-T wave xavier - Radiology Data Radiology results: report reviewed interpreted by me: Chest x-ray looks slightly hazy in the lower lobes was read by the radiologist as within normal limits. CT the head was within normal limits per radiologist. - Medical Decision Making Patient is meeting criteria for sepsis. Suspect infection is not known. Critical Care Time: Yes Critical care time in (mins) excluding proc time.: 70 Critical care attestation.: If time is entered above; I have spent that time in minutes in the direct care of this critically ill patient, excluding procedure time. ED Disposition Clinical Impression: Elevated transaminase level Sepsis Qualifiers: Sepsis type: sepsis due to unspecified organism Qualified Code(s): A41.9 - Sepsis, unspecified organism Altered mental status Qualifiers: Altered mental status type: unspecified Qualified Code(s): R41.82 - Altered mental status, unspecified Disposition: 09 OP ADMIT IP TO THIS HOSP Is pt being admited?: Yes Does the pt Need Aspirin: Yes Condition: Stable Time of Disposition: 15:58
[2017-04-22] MEDS ORDERED: ZOFRAN IV ONE (07:36)
[2017-04-22 08:18] LABS: Bilirubin,Direct 0.3 mg/dL (0-0.2)
[2017-04-22 08:26] LABS: INR 0.93 (0.87-1.13)
--- NOTE | 2017-04-22 08:41 | XRay Report ---
AP CHEST: HISTORY: Hypertension There is poor inspiration. AP view of the chest demonstrates a normal mediastinal and cardiac contour with clear lungs and normal bony and soft tissue structures. IMPRESSION: Unremarkable AP chest.
[2017-04-22] MEDS ORDERED: ROCEPHIN 2,000 MG in NACL 0.9% 50 ML IV ONE (08:48)
[2017-04-22] MEDS ORDERED: NACL 0.9% IV SCH (09:00)
--- NOTE | 2017-04-22 09:14 | Cat Scan Report ---
CT HEAD WITHOUT CONTRAST: HISTORY: Altered mental status. TECHNIQUE: Sequential 2.5mm CT images. COMPARISON: none. FINDINGS: Cerebral Parenchyma: Within normal limits. Cerebellum: There is a small linear area of diminished attenuation within the superior left cerebellar hemisphere measuring approximately 1.0 cm in length and 0.5 cm in width. This is best demonstrated on images 16-19. The etiology of this is unclear. I cannot entirely exclude a small area of acute or subacute ischemia. Please correlate with the patient and consider further imaging with MRI. Brainstem: Within normal limits. Ventricles: Normal. Sella: Normal. Extra-axial spaces: Normal. Basal Cisterns: Normal. Intracranial Hemorrhage: None. Midline Shift: None. Calvarium: Normal. Sinuses: Normal. Mastoid Air Cells: Normal. Visualized Orbits: Normal. IMPRESSION: Small area of diminished attenuation in the left cerebellum as described above.
[2017-04-22] MEDS ORDERED: VANCOMYCIN PHARMACY TO DOSE IV SCH (09:30)
[2017-04-22] MEDS ORDERED: cefTRIAXone 2 GM in NACL 0.9% 20 ML IV ONE (09:30)
[2017-04-22] MEDS ORDERED: VANCOMYCIN 1,750 MG in NACL 0.9% 500 ML 500 ML IV ONE (10:00)
[2017-04-22 10:30] LABS: Albumin 4.1 g/dL (3.9-5)
[2017-04-22 10:41] LABS: Glucose,CSF 78 mg/dL
[2017-04-22 10:42] LABS: Creatine Kinase MB 1.3 ng/mL (0.0-4.0)
--- NOTE | 2017-04-22 10:44 | History and Physical Report ---
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 Patient is refusing given sporadic history. He gives some history of any falls back asleep. He's easily arousable and tightness airways. He does not answer all questions or follow all commands. Roommate stepped out of his ED room to call patient's in [place]. Interesting to note, when patient does speak, his speech appears to be garbled and I have a very hard time understanding him. PMH: as hpi, pt is not answering all questions PSH: Appendectomy SH: +tob, very vague on Etoh, drug use FH: Father with hypertension diabetes ROS: Constitutional: +subjectiv fever ENT: denies: throat or neck pain Respiratory: Positive cough, shortness of breath Cardiovascular: denies: chest pain Endocrine: denies unexplained weight loss or gain Gastrointestinal: denies: abdominal pain, positive nausea Genitourinary: denies: dysuria Rectal: denies no incontinence, no bleeding, no itching, no discharge Musculoskeletal: Positive muscle weakness Skin: denies: rash Neurological: Asked but not answered Hematological/Lymphatic: denies: easy bleeding or easy bruising Allergic/Immunologic: no urticaria, no allergic rhinitis, no anaphylaxis Psych: Asked but not answered Medications and Allergies Allergies Allergy/AdvReac Type Severity Reaction Status Date / Time No Known Allergies Allergy Verified 04/22/17 08:53 Home Medications Medication Instructions Recorded Confirmed Last Taken Type No Known Home Medications [No 04/22/17 04/22/17 Unknown History Reported Home Medications] Active Meds: Active Medications Vancomycin HCl 1,750 mg/ (Sodium Chloride) 517.5 mls @ 333.333 mls/hr IV ONCE.ED ONE Stop: 04/22/17 11:33 Last Admin: 04/22/17 09:30 Dose: 333.333 mls/hr Sodium Chloride (Nacl 0.9% 1000 Ml) 1,000 mls @ 999 mls/hr IV BOLUS ONE Stop: 04/22/17 10:52 Last Admin: 04/22/17 10:09 Dose: 999 mls/hr Sodium Chloride (Nacl 0.9%) 1,571.87 ml IV DIRECT YANET Last Admin: 04/22/17 09:18 Dose: 1,571.87 ml Vancomycin HCl (Vancomycin Pharmacy To Dose) 1 each IV PKCONSULT YANET; Protocol Exam - Physical Exam Narrative exam: GEN: Ill-appearing, NAD, lethargic but oriented 3 HEENT: NCAT, EOMI, PERRL, OP Clear but very dry lips NECK: supple, no adenopathy, no thyromegaly, no JVD CVS/HEART: Regular bradycardia, NORMAL S1S2, pulses present bilaterally CHEST/LUNGS: CTA B, Symmetrical chest expansion, good air entry bilaterally GI/Abdomen: soft, nondistended, diffuse tenderness, good bowel sounds, no guarding or rebound /Bladder: no suprapubic tenderness, no CVA or paraspinal tenderness EXT/Skin: no c/c/e, signs of spider angiomas on his face MSK: Follow commands to squeeze my hand Neuro: CN 2-12 grossly intact, doesn't follow commands, dysarthric Psych: Confused - Constitutional Vitals: Temp Pulse Resp BP Pulse Ox 99.4 F 52 L 20 116/74 94 04/22/17 03:18 04/22/17 03:18 04/22/17 03:18 04/22/17 03:18 04/22/17 10:10 Results - Labs CBC & Chem 7: 04/22/17 03:25 04/22/17 03:25 Labs: Abnormal lab results 04/22/17 04/22/17 04/22/17 Range/Units 03:25 03:25 07:41 WBC 14.7 H (4.5-11.0) K/mm3 RBC 5.51 H (3.65-5.03) M/mm3 Hgb 16.9 H (11.8-15.2) gm/dl Hct 48.8 H (35.5-45.6) % MCHC 35 H (32-34) % RDW 12.7 L (13.2-15.2) % Seg Neuts % (Manual) 71.0 H (40.0-70.0) % Seg Neutrophils # Man 10.4 H (1.8-7.7) K/mm3 Monocytes # (Manual) 0.9 H (0.0-0.8) K/mm3 APTT (24.2-36.6) Sec. Sodium 136 L (137-145) mmol/L Chloride 95.3 L (98-107) mmol/L BUN 22 H (9-20) mg/dL Creatinine 0.7 L (0.8-1.5) mg/dL Glucose 171 H (75-100) mg/dL Lactic Acid (0.7-2.0) mmol/L Magnesium (1.7-2.3) mg/dL Direct Bilirubin 0.3 H (0-0.2) mg/dL AST 44 H 41 H (5-40) units/L ALT 89 H 84 H (7-56) units/L Ammonia (25-60) umol/L Lipase (13-60) units/L 04/22/17 04/22/17 04/22/17 Range/Units 07:41 07:41 07:41 WBC (4.5-11.0) K/mm3 RBC (3.65-5.03) M/mm3 Hgb (11.8-15.2) gm/dl Hct (35.5-45.6) % MCHC (32-34) % RDW (13.2-15.2) % Seg Neuts % (Manual) (40.0-70.0) % Seg Neutrophils # Man (1.8-7.7) K/mm3 Monocytes # (Manual) (0.0-0.8) K/mm3 APTT 20.0 L (24.2-36.6) Sec. Sodium (137-145) mmol/L Chloride (98-107) mmol/L BUN (9-20) mg/dL Creatinine (0.8-1.5) mg/dL Glucose (75-100) mg/dL Lactic Acid 3.10 H* (0.7-2.0) mmol/L Magnesium (1.7-2.3) mg/dL Direct Bilirubin (0-0.2) mg/dL AST (5-40) units/L ALT (7-56) units/L Ammonia (25-60) umol/L Lipase 3 L (13-60) units/L 04/22/17 04/22/17 Range/Units 10:07 10:07 WBC (4.5-11.0) K/mm3 RBC (3.65-5.03) M/mm3 Hgb (11.8-15.2) gm/dl Hct (35.5-45.6) % MCHC (32-34) % RDW (13.2-15.2) % Seg Neuts % (Manual) (40.0-70.0) % Seg Neutrophils # Man (1.8-7.7) K/mm3 Monocytes # (Manual) (0.0-0.8) K/mm3 APTT (24.2-36.6) Sec. 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 Patient is refusing given sporadic history. He gives some history of any falls back asleep. He's easily arousable and tightness airways. He does not answer all questions or follow all commands. Roommate stepped out of his ED room to call patient's in [place]. Interesting to note, when patient does speak, his speech appears to be garbled and I have a very hard time understanding him. Cold symptoms x 1 week, feeling weak with n/v and pneumonia last week. CT head wo contrast There is a small linear area of diminished attenuation within the superior left cerebellar hemisphere measuring approximately 1.0 cm in length and 0.5 cm in width. This is best demonstrated on images 16-19. The etiology of this is unclear. I cannot entirely exclude a small area of acute or subacute ischemia. Please correlate with the patient and consider further imaging with MRI. pCXR IMPRESSION: Unremarkable AP chest. -AMS, with Acute undifferentiated encephalopathy, ? acute stroke with abn CT head: get mri, stroke protocol, uds, etoh, ammonia level, echo -SIRS/Sepsis: bcx, iv abx, ivf -Elevated transaminases: abd u/s -Tobacco dependancy: claims counsel on stoppling -Hyponatremia, hypoos: ivf -dvt pro: sq heparin
[2017-04-22 10:50] LABS: Appearance,CSF Clear; Red Blood Cell,CSF 2 /mm3 (0-0); White Blood Cell,CSF 2 /mm3 (1-10)
[2017-04-22] MEDS ORDERED: ZOFRAN IV PRN (10:55)
[2017-04-22] MEDS ORDERED: DULCOLAX PR PRN (10:55)
[2017-04-22] MEDS ORDERED: SODIUM CHLORIDE FLUSH SYRINGE 10 ML IV PRN (10:55)
[2017-04-22] MEDS ORDERED: NACL 0.9% 1000 ML 1,000 ML IV SCH (12:00)
[2017-04-22 14:54] LABS: Amphetamine Screen,Urine PRESUMPTIVE NEGATIVE; Benzodiazepines Screen,Urine PRESUMPTIVE NEGATIVE; Cannabinoid Screen,Urine PRESUMPTIVE NEGATIVE; Cocaine Screen,Urine PRESUMPTIVE NEGATIVE; Methadone Screen,Urine PRESUMPTIVE NEGATIVE; Opiate Screen,Urine PRESUMPTIVE NEGATIVE
[2017-04-22 15:35] LABS: Basophils CSF 0 %; Total Cells Counted 0 /mm3
[2017-04-22] MEDS: ASPIRIN PO SCH (17:11)
[2017-04-22] MEDS: VANCOMYCIN 1,250 MG in NACL 0.9% 250ML 250 ML IV SCH (22:22)
[2017-04-23 05:16] LABS: Hematocrit 43.3 % (35.5-45.6); Hemoglobin 14.9 gm/dl (11.8-15.2); Mean Corpuscular HGB Conc 34 % (32-34); Mean Corpuscular Hemoglobin 31 pg (28-32); Mean Corpuscular Volume 89 fl (84-94); Platelet Count 262 K/mm3 (140-440); Red Blood Count 4.86 M/mm3 (3.65-5.03); Red Cell Distribution Width 12.8 % (13.2-15.2)
[2017-04-23 05:29] LABS: BUN/Creatinine Ratio 20; Blood Urea Nitrogen 14 mg/dL (9-20); Calcium 7.8 mg/dL (8.4-10.2); Chol/HDL Ratio 3.83 %; HDL Cholesterol 37 mg/dL (40-59); Hemolysis Index 28; LDL Cholesterol,Direct 87 mg/dL (50-130)
--- NOTE | 2017-04-23 07:05 | Ultrasound Report ---
FINAL REPORT EXAM: US ABDOMEN COMPLETE HISTORY: cirrhosis TECHNIQUE: Routine sonographic evaluation was obtained of the abdomen. FINDINGS: The gallbladder is normal in size and wall thickness. There are multiple stones in the gallbladder. There are no secondary signs of acute cholecystitis. The common bile duct is normal caliber at 3.8 mm. The liver is normal size and reveals increased echotexture secondary to cirrhosis/fatty change. There are no focal hepatic lesions. The abdominal aorta is not well seen because of bowel gas. The kidneys are appropriate size contour and echotexture. The right kidney measures 10.5 cm x 6.2 cm x 6.5 cm. The left kidney measures 12.6 cm x 5.7 cm x 6 cm. There is no evidence of hydronephrosis. The spleen is normal size measuring 8.4 cm pole. The echotexture of the spleen is heterogeneous. Pancreas is not well visualized. Free fluid is not seen IMPRESSION: Echogenic liver secondary to cirrhosis/fatty change. Gallstones. No secondary signs of acute cholecystitis.
[2017-04-23] MEDS: VANCOMYCIN 1,250 MG in NACL 0.9% 250ML 250 ML IV SCH ×2 (09:52→20:52)
[2017-04-23] MEDS: TYLENOL PO PRN ×2 (09:53→21:44)
[2017-04-23] MEDS: ASPIRIN PO SCH (09:53)
[2017-04-23] MEDS ORDERED: PROTONIX PO SCH (10:00)
[2017-04-23] MEDS ORDERED: cefTRIAXone 1 GM in NACL 0.9% 20 ML IV SCH (10:00)
[2017-04-23] MEDS: HEPARIN SUB-Q SCH ×2 (13:22→21:36)
[2017-04-23] MEDS ORDERED: ROBITUSSIN PO PRN (14:43)
--- NOTE | 2017-04-23 14:47 | Progress Note ---
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 Patient is refusing given sporadic history. He gives some history of any falls back asleep. He's easily arousable and tightness airways. He does not answer all questions or follow all commands. Roommate stepped out of his ED room to call patient's in [place]. Interesting to note, when patient does speak, his speech appears to be garbled and I have a very hard time understanding him. Cold symptoms x 1 week, feeling weak with n/v and pneumonia last week. CT head wo contrast There is a small linear area of diminished attenuation within the superior left cerebellar hemisphere measuring approximately 1.0 cm in length and 0.5 cm in width. This is best demonstrated on images 16-19. The etiology of this is unclear. I cannot entirely exclude a small area of acute or subacute ischemia. Please correlate with the patient and consider further imaging with MRI. pCXR IMPRESSION: Unremarkable AP chest. -AMS, with Acute undifferentiated encephalopathy, ? 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 Follow-up on current diagnosis of altered mental status which has improved. Overnight uneventful. Patient denies any chest pain, shortness breath, nausea/vomiting or severe headaches. Imaging, nursing note, chart, labs and old chart reviewed. Discussed with patient, at bedside. Patient's speech is More frequent, he still weak and lethargic. Has a nonproductive cough. Hospitalist Physical - Physical exam Narrative exam: GEN: Ill-appearing, NAD, lethargic but oriented 3 HEENT: NCAT, EOMI, PERRL, OP Clear but very dry lips NECK: supple, no adenopathy, no thyromegaly, no JVD CVS/HEART: Regular bradycardia, NORMAL S1S2, pulses present bilaterally CHEST/LUNGS: CTA B, Symmetrical chest expansion, good air entry bilaterally GI/Abdomen: soft, nondistended, diffuse tenderness, good bowel sounds, no guarding or rebound /Bladder: no suprapubic tenderness, no CVA or paraspinal tenderness EXT/Skin: no c/c/e, signs of spider angiomas on his face MSK: Follow commands to squeeze my hand Neuro: CN 2-12 grossly intact, doesn't follow commands, dysarthric, dysmetria, ataxic gait Psych: Confused - Constitutional Vitals: Temp Pulse Resp BP Pulse Ox 98.8 F 61 20 116/72 95 04/23/17 07:55 04/23/17 07:56 04/23/17 07:55 04/23/17 07:55 04/23/17 07:56 Results - Labs CBC & Chem 7: 04/23/17 04:30 04/23/17 04:30 Labs: Laboratory Last Values WBC 11.8 K/mm3 (4.5-11.0) H 04/23/17 04:30 RBC 4.86 M/mm3 (3.65-5.03) 04/23/17 04:30 Hgb 14.9 gm/dl (11.8-15.2) 04/23/17 04:30 Hct 43.3 % (35.5-45.6) 04/23/17 04:30 MCV 89 fl (84-94) 04/23/17 04:30 MCH 31 pg (28-32) 04/23/17 04:30 MCHC 34 % (32-34) 04/23/17 04:30 RDW 12.8 % (13.2-15.2) L 04/23/17 04:30 Plt Count 262 K/mm3 (140-440) 04/23/17 04:30 Add Manual Diff Complete 04/22/17 03:25 Total Counted 100 04/22/17 03:25 Seg Neuts % (Manual) 71.0 % (40.0-70.0) H 04/22/17 03:25 Band Neutrophils % 9.0 % 04/22/17 03:25 Lymphocytes % (Manual) 14.0 % (13.4-35.0) 04/22/17 03:25 Reactive Lymphs % (Man) 0 % 04/22/17 03:25 Monocytes % (Manual) 6.0 % (0.0-7.3) 04/22/17 03:25 Eosinophils % (Manual) 0 % (0.0-4.3) 04/22/17 03:25 Basophils % (Manual) 0 % (0.0-1.8) 04/22/17 03:25 Metamyelocytes % 0 % 04/22/17 03:25 Myelocytes % 0 % 04/22/17 03:25 Promyelocytes % 0 % 04/22/17 03:25 Blast Cells % 0 % 04/22/17 03:25 Nucleated RBC % Not Reportable 04/22/17 03:25 Seg Neutrophils # Man 10.4 K/mm3 (1.8-7.7) H 04/22/17 03:25 Band Neutrophils # 1.3 K/mm3 04/22/17 03:25 Lymphocytes # (Manual) 2.1 K/mm3 (1.2-5.4) 04/22/17 03:25 Abs React Lymphs (Man) 0.0 K/mm3 04/22/17 03:25 Monocytes # (Manual) 0.9 K/mm3 (0.0-0.8) H 04/22/17 03:25 Eosinophils # (Manual) 0.0 K/mm3 (0.0-0.4) 04/22/17 03:25 Basophils # (Manual) 0.0 K/mm3 (0.0-0.1) 04/22/17 03:25 Metamyelocytes # 0.0 K/mm3 04/22/17 03:25 Myelocytes # 0.0 K/mm3 04/22/17 03:25 Promyelocytes # 0.0 K/mm3 04/22/17 03:25 Blast Cells # 0.0 K/mm3 04/22/17 03:25 WBC Morphology Not Reportable 04/22/17 03:25 Hypersegmented Neuts Not Reportable 04/22/17 03:25 Hyposegmented Neuts Not Reportable 04/22/17 03:25 Hypogranular Neuts Not Reportable 04/22/17 03:25 Smudge Cells Not Reportable 04/22/17 03:25 Toxic Granulation Not Reportable 04/22/17 03:25 Toxic Vacuolation Not Reportable 04/22/17 03:25 Dohle Bodies Not Reportable 04/22/17 03:25 Pelger-Huet Anomaly Not Reportable 04/22/17 03:25 Tan Rods Not Reportable 04/22/17 03:25 Platelet Estimate Appears normal 04/22/17 03:25 Clumped Platelets Not Reportable 04/22/17 03:25 Plt Clumps, EDTA Not Reportable 04/22/17 03:25 Large Platelets Not Reportable 04/22/17 03:25 Giant Platelets Not Reportable 04/22/17 03:25 Platelet Satelliting Not Reportable 04/22/17 03:25 Plt Morphology Comment Not Reportable 04/22/17 03:25 RBC Morphology Not Reportable 04/22/17 03:25 Dimorphic RBCs Not Reportable 04/22/17 03:25 Polychromasia Not Reportable 04/22/17 03:25 Hypochromasia Not Reportable 04/22/17 03:25 Poikilocytosis Not Reportable 04/22/17 03:25 Anisocytosis 1+ 04/22/17 03:25 Microcytosis Not Reportable 04/22/17 03:25 Macrocytosis Not Reportable 04/22/17 03:25 Spherocytes Not Reportable 04/22/17 03:25 Pappenheimer Bodies Not Reportable 04/22/17 03:25 Sickle Cells Not Reportable 04/22/17 03:25 Target Cells Not Reportable 04/22/17 03:25 Tear Drop Cells Not Reportable 04/22/17 03:25 Ovalocytes Not Reportable 04/22/17 03:25 Helmet Cells Not Reportable 04/22/17 03:25 Fulton-[place] Bodies Not Reportable 04/22/17 03:25 Petal Rings Not Reportable 04/22/17 03:25 Paresh Cells Not Reportable 04/22/17 03:25 Bite Cells Not Reportable 04/22/17 03:25 Crenated Cell Not Reportable 04/22/17 03:25 Elliptocytes Not Reportable 04/22/17 03:25 Acanthocytes (Spur) Not Reportable 04/22/17 03:25 Rouleaux Not Reportable 04/22/17 03:25 Hemoglobin C Crystals Not Reportable 04/22/17 03:25 Schistocytes Not Reportable 04/22/17 03:25 Malaria parasites Not Reportable 04/22/17 03:25 Oswaldo Bodies Not Reportable 04/22/17 03:25 Hem Pathologist Commnt No 04/22/17 03:25 PT 12.9 Sec. (12.2-14.9) 04/22/17 07:41 INR 0.93 (0.87-1.13) 04/22/17 07:41 APTT 20.0 Sec. (24.2-36.6) L 04/22/17 07:41 POC ABG pH 7.394 (7.35-7.45) 04/22/17 10:08 POC ABG pCO2 36.5 (35-45) 04/22/17 10:08 POC ABG pO2 57 (80-105) L 04/22/17 10:08 POC ABG HCO3 22.3 04/22/17 10:08 POC ABG Total CO2 23 04/22/17 10:08 POC ABG O2 Sat 89 04/22/17 10:08 POC ABG Base Excess -3 04/22/17 10:08 FiO2 21 % 04/22/17 10:08 Sodium 140 mmol/L (137-145) 04/23/17 04:30 Potassium 4.0 mmol/L (3.6-5.0) 04/23/17 04:30 Chloride 101.8 mmol/L (98-107) 04/23/17 04:30 Carbon Dioxide 26 mmol/L (22-30) 04/23/17 04:30 Anion Gap 16 mmol/L 04/23/17 04:30 BUN 14 mg/dL (9-20) 04/23/17 04:30 Creatinine 0.7 mg/dL (0.8-1.5) L 04/23/17 04:30 Estimated GFR > 60 ml/min 04/23/17 04:30 BUN/Creatinine Ratio 20 % 04/23/17 04:30 Glucose 110 mg/dL (75-100) H 04/23/17 04:30 Hemoglobin A1c 5.8 % (4-6) 04/23/17 04:30 Lactic Acid 2.70 mmol/L (0.7-2.0) H* 04/22/17 10:07 Calcium 7.8 mg/dL (8.4-10.2) L 04/23/17 04:30 Magnesium 2.40 mg/dL (1.7-2.3) H 04/22/17 10:07 Total Bilirubin 0.90 mg/dL (0.1-1.2) 04/22/17 07:41 Direct Bilirubin 0.3 mg/dL (0-0.2) H 04/22/17 07:41 Indirect Bilirubin 0.6 mg/dL 04/22/17 07:41 AST 41 units/L (5-40) H 04/22/17 07:41 ALT 84 units/L (7-56) H 04/22/17 07:41 Alkaline Phosphatase 72 units/L (35-129) 04/22/17 07:41 Ammonia 22.0 umol/L (25-60) L 04/22/17 10:07 Total Creatine Kinase 57 units/L (55-170) 04/22/17 10:07 CK-MB (CK-2) 1.3 ng/mL (0.0-4.0) 04/22/17 10:07 CK-MB (CK-2) Rel Index 2.2 (0-4) 04/22/17 10:07 Troponin T < 0.010 ng/mL (0.00-0.029) 04/22/17 19:38 NT-Pro-B Natriuret Pep 40.33 pg/mL (0-450) 04/22/17 10:07 Total Protein 6.9 g/dL (6.3-8.2) 04/22/17 07:41 Albumin 4.1 g/dL (3.9-5) 04/22/17 07:41 Albumin/Globulin Ratio 1.5 % 04/22/17 07:41 Triglycerides 162 mg/dL (2-149) H 04/23/17 04:30 Cholesterol 142 mg/dL (50-199) 04/23/17 04:30 LDL Cholesterol Direct 87 mg/dL (50-130) 04/23/17 04:30 HDL Cholesterol 37 mg/dL (40-59) L 04/23/17 04:30 Cholesterol/HDL Ratio 3.83 % 04/23/17 04:30 Lipase 3 units/L (13-60) L 04/22/17 07:41 Urine Color Yellow (Yellow) 04/22/17 06:16 Urine Turbidity Clear (Clear) 04/22/17 06:16 Urine pH 5.0 (5.0-7.0) 04/22/17 06:16 Ur Specific [place] 1.024 (1.003-1.030) 04/22/17 06:16 Urine Protein <15 mg/dl mg/dL (Negative) 04/22/17 06:16 Urine Glucose (UA) Neg mg/dL (Negative) 04/22/17 06:16 Urine Ketones Neg mg/dL (Negative) 04/22/17 06:16 Urine Blood Neg (Negative) 04/22/17 06:16 Urine Nitrite Neg (Negative) 04/22/17 06:16 Urine Bilirubin Neg (Negative) 04/22/17 06:16 Urine Urobilinogen < 2.0 mg/dL (<2.0) 04/22/17 06:16 Ur Leukocyte Esterase Neg (Negative) 04/22/17 06:16 Urine WBC (Auto) 5.0 /HPF (0.0-6.0) 04/22/17 06:16 Urine RBC (Auto) 1.0 /HPF (0.0-6.0) 04/22/17 06:16 Hyaline Casts 4 /LPF 04/22/17 06:16 Urine Mucus 3+ /HPF 04/22/17 06:16 CSF Appearance Clear 04/22/17 Unknown CSF Color Colorless 04/22/17 Unknown CSF WBC 2 /mm3 (1-10) 04/22/17 Unknown CSF RBC 2 /mm3 (0-0) 04/22/17 Unknown CSF Seg Neutrophils 0 % (0-6) 04/22/17 Unknown CSF Lymphocytes % 0 % (40-80) 04/22/17 Unknown CSF Reactive Lymphs 0 % 04/22/17 Unknown CSF Monocytes % 0 % (15-45) 04/22/17 Unknown CSF Eosinophils % 0 % 04/22/17 Unknown CSF Basophils 0 % 04/22/17 Unknown CSF Pathologist Review C 04/22/17 Unknown CSF Glucose 78 mg/dL 04/22/17 Unknown CSF Total Protein 32 mg/dL 04/22/17 Unknown Urine Opiates Screen Presumptive negative 04/22/17 10:53 Urine Methadone Screen Presumptive negative 04/22/17 10:53 Acetaminophen < 15.0 ug/mL (10.0-30.0) 04/22/17 10:07 Ur Barbiturates Screen Presumptive negative 04/22/17 10:53 Ur Phencyclidine Scrn Presumptive negative 04/22/17 10:53 Ur Amphetamines Screen Presumptive negative 04/22/17 10:53 U Benzodiazepines Scrn Presumptive negative 04/22/17 10:53 Urine Cocaine Screen Presumptive negative 04/22/17 10:53 U Marijuana (THC) Screen Presumptive negative 04/22/17 10:53 Drugs of Abuse Note Disclamer 04/22/17 10:53
[2017-04-23] MEDS: TESSALON PERLES PO SCH ×2 (17:26→21:36)
--- NOTE | 2017-04-23 19:11 | Magnetic Resonance Report ---
FINAL REPORT PROCEDURE: MR BRAIN WO CON TECHNIQUE: Magnetic resonance imaging of the brain was performed without contrast material. HISTORY: stroke COMPARISON: No prior studies are available for comparison. FINDINGS: There are multiple bright T2 signal foci in the cerebellar hemispheres bilaterally with regional area of T2 signal in the right cerebellum measuring in the 2 x 4 centimeter range with other foci of T2 signal in the high left posterior medial posterior lateral occipital lobe right left basal ganglia possible tiny focus right posterior occipital region.consistent with areas of acute ischemic change in a widespread shower like distribution. No hemorrhage is seen. Ventricles are not enlarged no mass effect midline shift or extra-axial fluid collection IMPRESSION: Multiple areas of acute ischemic change involving the bilateral cerebellar hemispheres and primarily left occipital brain and tiny foci in the basal ganglia.
[2017-04-23 20:10] VITALS: BP 122/82
--- NOTE | 2017-04-23 21:28 | Magnetic Resonance Report ---
FINAL REPORT PROCEDURE: MR MRA/MRV HEAD WO CON TECHNIQUE: Axial 3-D [id number] MR angiography of the [place] and brain was performed. The source images were reconstructed in various views using maximum intensity projection. HISTORY: stroke COMPARISON: MRI today FINDINGS: Vertebral arteries: Apparently absent signal in the distal left vertebral artery may reflect chronic occlusion or severe attenuation below the detect ability of the MRA without IV contrast., Or could reflect occlusive recently occlusive pathologic process.. Basilar artery: Normal. Internal carotid arteries: Normal. Anterior cerebral arteries: Normal. Middle cerebral arteries: Moderate attenuation distal left middle cerebral artery distal M1 M2 segments Posterior cerebral arteries: Normal. Branch occlusions: None. Vascular malformations: None. IMPRESSION: Absent signal left vertebral artery may be occluded Attenuated distal M1 M2 segment appearance Consider followup CT scan or MRI with IV contrast
--- NOTE | 2017-04-23 22:44 | Discharge Summary ---
Providers - Providers Date of Admission: 04/22/17 10:31 Date of discharge: 04/23/17 Attending physician: ASHWINI BOWLES 04/22/17 10:55 Consult to Case Management [CONS] Routine Services Needed at Discharge: Plug Shaper Hand Notified:: case filler ( Elida ) Phone number called:: spoke with her on unit. Was contact made?: Yes If yes, spoke with:: Elida Time called:: 15:40 Comment:: stated she will be going to see patient. Consult to Dietitian/Nutrition [CONS] Routine Physician Instructions: Reason For Exam: Reason for Consult: Nutrition Recommendations Reason for Consult: Poor oral intake Occupational Therapy Evaluate and Treat [CONS] Routine Comment: Reason For Exam: Neuro deficits Physical Therapy Evaluation and Treat [CONS] Routine Comment: Reason For Exam: Neuro deficits 04/22/17 10:56 Speech Therapy Evaluation and Treat [CONS] Routine Reason For Exam: swallow eval Primary care physician: LURDES SHARPE Hospitalization Condition: Fair Hospital course: Patient is a 46-year-old man with a history of tobacco dependency from [place], [place], living with a roommate for 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 Patient is refusing given sporadic history. He gives some history of any falls back asleep. He's easily arousable and tightness airways. He does not answer all questions or follow all commands. Roommate stepped out of his ED room to call patient's in [place]. Interesting to note, when patient does speak, his speech appears to be garbled and I have a very hard time understanding him. Cold symptoms x 1 week, feeling weak with n/v and pneumonia last week. CT head wo contrast There is a small linear area of diminished attenuation within the superior left cerebellar hemisphere measuring approximately 1.0 cm in length and 0.5 cm in width. This is best demonstrated on images 16-19. The etiology of this is unclear. I cannot entirely exclude a small area of acute or subacute ischemia. Please correlate with the patient and consider further imaging with MRI. pCXR IMPRESSION: Unremarkable AP chest. -AMS, with Acute undifferentiated encephalopathy, ? 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 I called [facility] transfer center and spoke with Isabel to get patient transfer. There is no Neurologist or Neurosurgeron dental front office assistant coverage at this time and over the weekend. Patient has been accepted by Dr. Plasencia at [facility]. I have spoken with charge nurse==>send MRI and MRA disc I have spoken with Disposition: [id number]/TX-70 ANOTHER TYPE HLTHCARE Time spent for discharge: 36 min Core Measure Documentation - Palliative Care Palliative Care/ Comfort Measures: Not Applicable - Core Measures Any of the following diagnoses?: stroke - VTE Discharge Requirements Deep Vein Thrombosis/Pulmonary Embolism Present on Admission: No Has pt received <5 days of overlap therapy or INR<2.0: No Anticoagulant overlap therapy prescribed at discharge: No Contraindication No Overlap Therapy order at DC: Not Indicated - Stroke Discharge Requirements Statin for LDL = or >70 mg/dl on DC: Yes Anticoag for atrial fib/atrial flutter: Not Applicable Antithrombotic for ischemic stroke: Yes Exam - Physical Exam Narrative exam: GEN: Ill-appearing, NAD, lethargic but oriented 3 HEENT: NCAT, EOMI, PERRL, OP Clear but very dry lips NECK: supple, no adenopathy, no thyromegaly, no JVD CVS/HEART: Regular bradycardia, NORMAL S1S2, pulses present bilaterally CHEST/LUNGS: CTA B, Symmetrical chest expansion, good air entry bilaterally GI/Abdomen: soft, nondistended, diffuse tenderness, good bowel sounds, no guarding or rebound /Bladder: no suprapubic tenderness, no CVA or paraspinal tenderness EXT/Skin: no c/c/e, signs of spider angiomas on his face MSK: Follow commands to squeeze my hand Neuro: CN 2-12 grossly intact, doesn't follow commands, dysarthric, dysmetria, ataxic gait Psych: Confused - Constitutional Vitals: Temp Pulse Resp BP Pulse Ox 99.6 F 65 20 122/82 96 04/23/17 19:35 04/23/17 19:35 04/23/17 19:35 04/23/17 19:35 04/23/17 19:35 Plan Activity: up only with assistance, other (no strenous activity) Diet: per dietitian instruction Follow up with: LURDES SHARPE MD [Primary Care Provider] - 3-5 Days Prescriptions: Simvastatin [Zocor] 20 mg PO QHS #30 tablet
== END 2017-04-24 00:18 | disposition short-term general hospital (02) | DRG 871 ==
LOC: ED 02:56 → 3A 10:31
PROVIDERS: ADMIT Internal Medicine; ATTEND Internal Medicine
PROC: 009U3ZX Drainage of Spinal Canal, Percutaneous Approach, Diagnostic (ICD-10-PCS; principal; 2017-04-22)
PROC: 4A033R1 Measurement of Arterial Saturation, Peripheral, Percutaneous Approach (ICD-10-PCS; 2017-04-22)
DX: A41.9 Sepsis, unspecified organism (principal); I63.9 Cerebral infarction, unspecified; E87.1 Hypo-osmolality and hyponatremia; F17.200 Nicotine dependence, unspecified, uncomplicated; K74.60 Unspecified cirrhosis of liver; Z71.6 Tobacco abuse counseling; Z90.49 Acquired absence of other specified parts of digestive tract; Z82.49 Family history of ischemic heart disease and other diseases of the circulatory system; Z83.3 Family history of diabetes mellitus
CPT/HCPCS: 36415; 70450; 70544; 70551; 71045; 76700; 80048; 80053; 80061; 80074; 80307; 80320; 81001; 82140; 82550; 82553; 82803; 82947; 83036; 83690; 83735; 83880; 84160; 84484; 85007; 85025; 85027; 85610; 85730; 86403; 86592; 87040; 87116; 89051; 93005; 93010; 93306; 93880; 94760; 96374; 96375; 99291; G0480; J0696; J1644; J2405; J3370; J7030; J7040; J7050